=== PATIENT | female | born 1955 | race Asian ===

== ENCOUNTER 2017-02-18 06:24 | Emergency (ER) | payer MEDICAID ==
[~2017-02-18] VITALS: Ht 149.9 cm; Wt 61.4 kg
[~2017-02-18 06:24] MED LIST: CLON0.2T PO; HCTZ PO; LISI10TA7 PO; PARO20TA24
[2017-02-18] MEDS ORDERED: MELO-107 PO (06:39)
[2017-02-18] MEDS ORDERED: NITR.4 SL (06:39)
[2017-02-18] MEDS ORDERED: TRAZ-144 PO (06:39)
[2017-02-18] MEDS ORDERED: ATOR20TA86 PO (06:39)
[2017-02-18] MEDS ORDERED: BENZ-51 PO (06:39)
[2017-02-18] MEDS ORDERED: LOSA25TA21 PO (06:39)
[2017-02-18] MEDS ORDERED: MECL-111 PO (06:39)
[2017-02-18 09:48] LABS: BASOPHILS # (AUTO) 0.02 K/uL (0.00-0.20); BASOPHILS % (AUTO) 0.2 % (0.0-2.0); EOSINOPHILS % (AUTO) 0.01 % (1.0-6.0); HEMATOCRIT 45.6 % (36-46); HEMOGLOBIN 14.6 g/dL (12.0-16.0); LYMPHOCYTES # (AUTO) 1.3 K/uL (1.0-4.8); LYMPHOCYTES % (AUTO) 13.6 % (22.0-44.0); MEAN CORPUSCULAR HEMOGLOBIN 26.5 pg (26.0-34.0); MEAN CORPUSCULAR VOLUME 83 fL (80-100); MONOCYTES # (AUTO) 0.3 K/uL (0.1-1.0); MONOCYTES % (AUTO) 3.2 % (2.0-9.0); NEUTROPHILS # (AUTO) 8.2 K/uL (1.8-7.7); PLATELET COUNT (AUTO) 259 K/uL (150-450); RED BLOOD CELL COUNT(AUTO) 5.51 MIL/uL (4.00-5.20); WHITE BLOOD COUNT (AUTO) 9.8 K/uL (4.5-11.0)
[2017-02-18 09:58] LABS: APPEARANCE,URINE CLOUDY (CLEAR); GLUCOSE, URINE (UA) 100 mg/dL (NEGATIVE); KETONES,URINE TRACE mg/dL (NEGATIVE); LEUKOCYTE ESTERASE ,URINE NEGATIVE (NEGATIVE); OCCULT BLOOD,URINE NEGATIVE (NEGATIVE); PH,URINE 8.5 (5.0-8.0); PROTEIN,URINE SEE CONFIRM (NEGATIVE)
[2017-02-18 09:59] LABS: ADD UA MICROSCOPIC YES
[2017-02-18] MEDS ORDERED: ONDANSETRON HCL 4 MG/2 ML VIAL IVP ONE (10:00)
[2017-02-18] MEDS ORDERED: KETOROLAC TROMETHAMINE 30 MG/ML VIAL IVP ONE (10:00)
[2017-02-18] MEDS ORDERED: SODIUM CHLORIDE 0.9% 1,000 ML IV ONE (10:00)
[2017-02-18 10:03] LABS: ANION GAP 11 mmol/L (8-16); CALCIUM, TOTAL 9.6 mg/dL (8.8-10.5); CARBON DIOXIDE 26 mmol/L (22-29); CHLORIDE 103 mmol/L (98-107); CREATININE 0.74 mg/dL (0.60-1.30); GLOMERULAR FILTR. RATE CALC > 60 mL/min (>60); POTASSIUM 3.7 mmol/L (3.5-5.1); SODIUM SERUM 140 mmol/L (136-145); UREA NITROGEN, BLOOD 14 mg/dL (7-18)
[2017-02-18 10:09] LABS: SULFOSALICYLIC ACID,URINE Trace (Negative)
[2017-02-18 10:09] LABS: ALANINE AMINOTRANSFERASE 30 U/L (12-78); ALBUMIN 4.2 g/dL (3.4-5.0); ASPARTATE AMINOTRANSFERASE 26 U/L (15-37); BILIRUBIN,TOTAL 0.7 mg/dL (0.1-1.0); TOTAL PROTEIN, SERUM 8.3 g/dL (6.4-8.2)
[2017-02-18 10:11] LABS: RBC,URINE None Seen /HPF (0-2); SQUAMOUS EPITHELIAL CELL,UR Few /LPF (None Seen)
[2017-02-18] MEDS ORDERED: LOSARTAN POTASSIUM 25 MG TABLET PO ONE (11:15)
[2017-02-18 12:40] VITALS: BP 157/91
== END 2017-02-18 12:50 | disposition home or self-care (01) ==
LOC: EMS 06:25
DX: R11.2 Nausea with vomiting, unspecified (principal); R19.7 Diarrhea, unspecified; R51 Headache; I10 Essential (primary) hypertension
CPT/HCPCS: 36415; 80053; 81001; 83690; 84484; 85025; 87086; 96374; 96375; 99284; J1885; J2405; J7030

== ENCOUNTER 2017-03-04 13:38 | Emergency (ER) | payer MEDICAID ==
[~2017-03-04] VITALS: Ht 152.4 cm; Wt 61.4 kg
[~2017-03-04 13:38] MED LIST changes: +ATOR20TA86 PO; +BENZ-51 PO; -HCTZ PO; -LISI10TA7 PO; +LOSA25TA21 PO; +MECL-111 PO; +MELO-107 PO; +NITR.4 SL; -PARO20TA24; +TRAZ-144 PO
[2017-03-04] MEDS ORDERED: LOSA50TA37 PO (13:41)
[2017-03-04] MEDS ORDERED: IBUPROFEN 800 MG TABLET PO ONE (14:15)
[2017-03-04 14:47] LABS: INFLUENZA TYPE A NEGATIVE FOR TYPE A (NEGATIVE); INFLUENZA TYPE B NEGATIVE FOR TYPE B (NEGATIVE); RAPID GROUP A STREP NEGATIVE (NEGATIVE)
[2017-03-04] MEDS ORDERED: ALBUTEROL SULFATE 5 MG/ML 20 ML NEB SOLN [BULK] NEB ONE (16:15)
[2017-03-04 17:51] VITALS: BP 121/61
== END 2017-03-04 17:52 | disposition home or self-care (01) ==
LOC: EMS 13:40
DX: J06.9 Acute upper respiratory infection, unspecified (principal); J40 Bronchitis, not specified as acute or chronic; I10 Essential (primary) hypertension
CPT/HCPCS: 71020; 87430; 87804; 94640; 99285

== ENCOUNTER 2017-09-22 12:59 | Emergency (ER) | payer MEDICAID ==
[~2017-09-22] VITALS: Ht 152.4 cm; Wt 61.8 kg
[~2017-09-22 12:59] MED LIST changes: -LOSA25TA21 PO; +LOSA50TA37 PO; -TRAZ-144 PO; +TRAZ-219 PO
[2017-09-22 15:01] LABS: BASOPHILS % (AUTO) 0.6 % (0.0-2.0); EOSINOPHILS % (AUTO) 0.1 % (1.0-6.0); HEMATOCRIT 41.8 % (36-46); HEMOGLOBIN 14.1 g/dL (12.0-16.0); LYMPHOCYTES # (AUTO) 2.3 K/uL (1.0-4.8); LYMPHOCYTES % (AUTO) 30.6 % (22.0-44.0); MEAN CORPUSCULAR HEMOGLOBIN 26.9 pg (26.0-34.0); MEAN CORPUSCULAR HGB CONC 33.6 G/dL (31.0-37.0); MEAN CORPUSCULAR VOLUME 80 fL (80-100); MONOCYTES # (AUTO) 0.5 K/uL (0.1-1.0); MONOCYTES % (AUTO) 6.9 % (2.0-9.0); NEUTROPHILS # (AUTO) 4.7 K/uL (1.8-7.7); NEUTROPHILS % (AUTO) 61.8 % (40.0-70.0); PLATELET COUNT (AUTO) 246 K/uL (150-450); RED BLOOD CELL COUNT(AUTO) 5.23 MIL/uL (4.00-5.20); RED CELL DISTRIBUTION WIDTH 13.7 % (11.5-14.5)
[2017-09-22 15:06] LABS: APPEARANCE,URINE CLEAR (CLEAR); BILIRUBIN,URINE NEGATIVE (NEGATIVE); GLUCOSE, URINE (UA) NEGATIVE (NEGATIVE); KETONES,URINE 40 mg/dL (NEGATIVE); LEUKOCYTE ESTERASE ,URINE NEGATIVE (NEGATIVE); NITRATE,URINE NEGATIVE (NEGATIVE); OCCULT BLOOD,URINE NEGATIVE (NEGATIVE); PH,URINE 7.5 (5.0-8.0); PROTEIN,URINE TRACE (NEGATIVE)
[2017-09-22] MEDS ORDERED: SODIUM CHLORIDE 0.9% 1,000 ML IV ONE (15:15)
[2017-09-22] MEDS ORDERED: ONDANSETRON HCL 4 MG/2 ML VIAL IVP ONE (15:15)
[2017-09-22] MEDS ORDERED: KETOROLAC TROMETHAMINE 30 MG/ML VIAL IVP ONE (15:15)
[2017-09-22 15:19] LABS: CALCIUM, TOTAL 9.4 mg/dL (8.8-10.5); CREATININE 0.99 mg/dL (0.60-1.30); POTASSIUM 3.4 mmol/L (3.5-5.1)
[2017-09-22 15:24] LABS: ALBUMIN 4.2 g/dL (3.4-5.0); BILIRUBIN,TOTAL 1.2 mg/dL (0.1-1.0); TOTAL PROTEIN, SERUM 8.2 g/dL (6.4-8.2)
[2017-09-22 15:27] LABS: BACTERIA,URINE None Seen /HPF (None Seen); RBC,URINE None Seen /HPF (0-2); SQUAMOUS EPITHELIAL CELL,UR Rare /LPF (None Seen); WBC,URINE 0-2 /HPF (0-5)
[2017-09-22 17:02] VITALS: BP 139/71
== END 2017-09-22 17:22 | disposition home or self-care (01) ==
LOC: EMS 12:59
DX: R11.2 Nausea with vomiting, unspecified (principal); R10.10 Upper abdominal pain, unspecified; R30.9 Painful micturition, unspecified; I10 Essential (primary) hypertension
CPT/HCPCS: 36415; 80053; 81001; 83690; 85025; 96361; 96374; 96375; 99284; J1885; J2405; J7030

== ENCOUNTER 2023-08-05 18:03 | Emergency (ER) | payer MEDICARE, MEDICAID ==
[~2023-08-05] VITALS: Ht 149.9 cm; Wt 59.1 kg
[~2023-08-05 18:03] MED LIST changes: +ATOR20TA PO; -ATOR20TA86 PO; +BENZ-227 PO; -BENZ-51 PO; +LOSA-382 PO; -LOSA50TA37 PO; -MECL-111 PO; +MECL-302 PO; -NITR.4 SL; +NITR0.4T52 SL; -TRAZ-219 PO; +TRAZ-252 PO
[2023-08-05 18:18] VITALS: BP 191/77; PULSE 56; RESP 14; TEMP 97.8
[2023-08-05] MEDS ORDERED: TRAZ-257 PO (18:36)
[2023-08-05] MEDS ORDERED: CLON0.2T2 PO (18:36)
[2023-08-05] MEDS ORDERED: GABA-529 PO (18:36)
[2023-08-05] MEDS ORDERED: HYDR12.56 PO (18:36)
[2023-08-05] MEDS: SODIUM CHLORIDE 0.9% 1,000 ML IV ONE (18:50)
[2023-08-05] MEDS: DIPHENOXYLATE/ATROP 2.5-0.025 MG TABLET PO ONE (18:51)
[2023-08-05] MEDS: ACETAMINOPHEN 500 MG TABLET PO ONE (18:51)
[2023-08-05] MEDS: ONDANSETRON HCL 4 MG/2 ML VIAL IVP ONE (18:52)
[2023-08-05 19:24] LABS: BASOPHILS % (AUTO) 0.3 % (0.0-2.0); EOSINOPHILS % (AUTO) 0.1 % (1.0-6.0); HEMATOCRIT 37.1 % (36-46); HEMOGLOBIN 11.8 g/dL (12.0-16.0); LYMPHOCYTES # (AUTO) 0.7 K/uL (1.0-4.8); LYMPHOCYTES % (AUTO) 10.1 % (22.0-44.0); MEAN CORPUSCULAR HEMOGLOBIN 25.7 pg (26.0-34.0); MEAN CORPUSCULAR HGB CONC 31.7 G/dL (31.0-37.0); MEAN CORPUSCULAR VOLUME 81 fL (80-100); MONOCYTES # (AUTO) 0.2 K/uL (0.1-1.0); MONOCYTES % (AUTO) 2.6 % (2.0-9.0); NEUTROPHILS # (AUTO) 5.7 K/uL (1.8-7.7); NEUTROPHILS % (AUTO) 86.9 % (40.0-70.0); PLATELET COUNT (AUTO) 204 K/uL (150-450); RED BLOOD CELL COUNT(AUTO) 4.59 MIL/uL (4.00-5.20); RED CELL DISTRIBUTION WIDTH 13.7 % (11.5-14.5); WHITE BLOOD COUNT (AUTO) 6.5 K/uL (4.5-11.0)
[2023-08-05 19:35] LABS: ANION GAP 9 mmol/L (8-16); CALCIUM, TOTAL 8.3 mg/dL (8.8-10.5); CARBON DIOXIDE 26 mmol/L (22-29); CHLORIDE 107 mmol/L (98-107); CREATININE 0.86 mg/dL (0.60-1.30); GLOMERULAR FILTR. RATE CALC > 60 mL/min (>60); GLUCOSE,RANDOM 131 mg/dL (70-110); POTASSIUM 3.4 mmol/L (3.5-5.1); SODIUM SERUM 142 mmol/L (136-145); UREA NITROGEN, BLOOD 19 mg/dL (7-18)
[2023-08-05 19:40] LABS: RBC MORPHOLOGY COMMENT NORMAL RBC MORPH
[2023-08-05 19:41] LABS: ALANINE AMINOTRANSFERASE 14 U/L (12-78); ALBUMIN 3.1 g/dL (3.4-5.0); ALKALINE PHOSPHATASE 98 U/L (46-116); ASPARTATE AMINOTRANSFERASE 18 U/L (15-37); BILIRUBIN,TOTAL 0.4 mg/dL (0.1-1.0); LIPASE 29 U/L (16-77); TOTAL PROTEIN, SERUM 6.8 g/dL (6.4-8.2)
[2023-08-05 19:46] LABS: TROPONIN I-HIGH SENSITIVITY 9 ng/L (<51)
[2023-08-05] MEDS ORDERED: DIPH-1130 PO ×2 (20:25→22:44)
[2023-08-05] MEDS ORDERED: ACET-66 PO ×2 (20:25→22:44)
[2023-08-05] MEDS ORDERED: ONDA-104 PO ×2 (20:25→22:44)
== END 2023-08-05 20:54 | disposition home or self-care (01) ==
LOC: EMS 18:04
DX: K52.9 Noninfective gastroenteritis and colitis, unspecified (principal); F41.9 Anxiety disorder, unspecified; I10 Essential (primary) hypertension; F32.A Depression, unspecified
CPT/HCPCS: 99283; 96374; 96361; 80053; 83690; 84484; 85025; 36415; J2405; J7030

== ENCOUNTER 2023-11-16 08:24 | Emergency (ER) | payer OTHER ==
[~2023-11-16] VITALS: Ht 160 cm; Wt 59.1 kg
[~2023-11-16 08:24] MED LIST changes: +ACET-66 PO; -BENZ-227 PO; -CLON0.2T PO; +CLON0.2T2 PO; +DIPH-1130 PO; +GABA-529 PO; +HYDR12.56 PO; -MECL-302 PO; -MELO-107 PO; +ONDA-104 PO; -TRAZ-252 PO; +TRAZ-257 PO
[2023-11-16 08:32] VITALS: BP 127/46; PULSE 56; RESP 18; TEMP 98.7; O2SAT 100
[2023-11-16 09:17] LABS: BASOPHILS % (AUTO) 0.3 % (0.0-2.0); EOSINOPHILS % (AUTO) 0.3 % (1.0-6.0); HEMATOCRIT 37.2 % (36-46); HEMOGLOBIN 11.9 g/dL (12.0-16.0); LYMPHOCYTES # (AUTO) 1.4 K/uL (1.0-4.8); LYMPHOCYTES % (AUTO) 22.7 % (22.0-44.0); MEAN CORPUSCULAR HEMOGLOBIN 26.5 pg (26.0-34.0); MEAN CORPUSCULAR HGB CONC 32.1 G/dL (31.0-37.0); MEAN CORPUSCULAR VOLUME 83 fL (80-100); MONOCYTES # (AUTO) 0.4 K/uL (0.1-1.0); MONOCYTES % (AUTO) 5.8 % (2.0-9.0); NEUTROPHILS # (AUTO) 4.3 K/uL (1.8-7.7); NEUTROPHILS % (AUTO) 70.9 % (40.0-70.0); PLATELET COUNT (AUTO) 219 K/uL (150-450); RED BLOOD CELL COUNT(AUTO) 4.51 MIL/uL (4.00-5.20); RED CELL DISTRIBUTION WIDTH 15.9 % (11.5-14.5); WHITE BLOOD COUNT (AUTO) 6.1 K/uL (4.5-11.0)
[2023-11-16 09:30] LABS: CALCIUM, TOTAL 8.9 mg/dL (8.8-10.5); CREATININE 1.3 mg/dL (0.60-1.30); POTASSIUM 3.4 mmol/L (3.5-5.1)
[2023-11-16 09:37] LABS: TROPONIN I-HIGH SENSITIVITY 12 ng/L (<51)
[2023-11-16] MEDS: ONDANSETRON HCL 4 MG/2 ML VIAL IVP ONE (10:13)
[2023-11-16] MEDS: SODIUM CHLORIDE 0.9% 500 ML IV ONE (10:13)
[2023-11-16] MEDS ORDERED: ONDA-104 PO (13:03)
== END 2023-11-16 13:25 | disposition home or self-care (01) ==
LOC: EMS 08:24
DX: R11.2 Nausea with vomiting, unspecified (principal); F41.9 Anxiety disorder, unspecified; F32.A Depression, unspecified; I10 Essential (primary) hypertension
CPT/HCPCS: 99283; 96374; 80048; 83690; 84484; 85025; 36415; J2405; J7040

== ENCOUNTER 2024-01-04 23:00 | Inpatient (IN) | payer OTHER ==
[~2024-01-04] VITALS: Ht 149.9 cm; Wt 59.1 kg
[2024-01-04] MEDS: SODIUM CHLORIDE 0.9% 1,000 ML IV ONE (23:45)
[2024-01-04] MEDS: ONDANSETRON HCL 4 MG/2 ML VIAL IVP ONE (23:46)
[2024-01-04] MEDS: FAMOTIDINE 20 MG/2 ML VIAL IVP ONE (23:46)
[2024-01-04] MEDS: KETOROLAC TROMETHAMINE 30 MG/ML VIAL IVP ONE (23:46)
[2024-01-04 23:50] LABS: BASOPHILS % (AUTO) 0.5 % (0.0-2.0); EOSINOPHILS % (AUTO) 0.8 % (1.0-6.0); HEMATOCRIT 41.5 % (36-46); HEMOGLOBIN 13.4 g/dL (12.0-16.0); LYMPHOCYTES # (AUTO) 1.9 K/uL (1.0-4.8); LYMPHOCYTES % (AUTO) 18.7 % (22.0-44.0); MEAN CORPUSCULAR HEMOGLOBIN 26.2 pg (26.0-34.0); MEAN CORPUSCULAR HGB CONC 32.2 G/dL (31.0-37.0); MEAN CORPUSCULAR VOLUME 82 fL (80-100); MONOCYTES # (AUTO) 0.7 K/uL (0.1-1.0); MONOCYTES % (AUTO) 6.5 % (2.0-9.0); NEUTROPHILS # (AUTO) 7.5 K/uL (1.8-7.7); NEUTROPHILS % (AUTO) 73.5 % (40.0-70.0); PLATELET COUNT (AUTO) 209 K/uL (150-450); RED BLOOD CELL COUNT(AUTO) 5.09 MIL/uL (4.00-5.20); WHITE BLOOD COUNT (AUTO) 10.2 K/uL (4.5-11.0)
[2024-01-04 23:59] LABS: ANION GAP 5 mmol/L (8-16); CALCIUM, TOTAL 9.1 mg/dL (8.8-10.5); CARBON DIOXIDE 29 mmol/L (22-29); CHLORIDE 104 mmol/L (98-107); GLOMERULAR FILTR. RATE CALC > 60 mL/min (>60); GLUCOSE,RANDOM 117 mg/dL (70-110); POTASSIUM 3.7 mmol/L (3.5-5.1); SODIUM SERUM 138 mmol/L (136-145); UREA NITROGEN, BLOOD 18 mg/dL (7-18)
[2024-01-05 00:05] LABS: ALANINE AMINOTRANSFERASE 21 U/L (12-78); ALBUMIN 3.5 g/dL (3.4-5.0); ALKALINE PHOSPHATASE 85 U/L (46-116); ASPARTATE AMINOTRANSFERASE 34 U/L (15-37); BILIRUBIN,TOTAL 0.6 mg/dL (0.1-1.0); LIPASE 54 U/L (16-77); TOTAL PROTEIN, SERUM 7.5 g/dL (6.4-8.2)
[2024-01-05] MEDS ORDERED: SODIUM CHLORIDE 0.9% 100 ML ONE (00:17)
[2024-01-05] MEDS ORDERED: IOHEXOL 350 MG/ML 100 ML VIAL ONE (00:18)
[2024-01-05 00:26] LABS: TROPONIN I-HIGH SENSITIVITY 13 ng/L (<51)
[2024-01-05] MEDS: PIPERACILLIN/TAZO 3.375 GM/D5W 50 ML IV ONE (02:32)
[2024-01-05] MEDS: HydrALAZINE HCL 20 MG/ML VIAL IVP PRN (02:59)
[2024-01-05] MEDS: SODIUM CHLORIDE 0.9% 1,000 ML IV ONE (02:59)
[2024-01-05] MEDS ORDERED: ONDANSETRON HCL 4 MG/2 ML VIAL IVP PRN (03:00)
[2024-01-05] MEDS: MORPHINE SULFATE 4 MG/ML SYRINGE IVP PRN ×2 (03:37→19:46)
[2024-01-05 03:58] LABS: APPEARANCE,URINE CLEAR (CLEAR); BILIRUBIN,URINE NEGATIVE (NEGATIVE); COLOR,URINE LIGHT YELLOW (YELLOW); GLUCOSE, URINE (UA) 150-200 mg/dL (NEGATIVE); KETONES,URINE NEGATIVE (NEGATIVE); LEUKOCYTE ESTERASE ,URINE NEGATIVE (NEGATIVE); NITRATE,URINE NEGATIVE (NEGATIVE); OCCULT BLOOD,URINE NEGATIVE (NEGATIVE); PH,URINE 5.5 (5.0-8.0); PROTEIN,URINE NEGATIVE (NEGATIVE); SPECIFIC GRAVITIY, URINE 1.013 (1.003-1.030); UROBILINOGEN,URINE <=1.0 mg/dL (<=1.0)
[2024-01-05 04:18] LABS: BACTERIA,URINE None Seen /HPF (None Seen); RBC,URINE None Seen /HPF (0-2); SQUAMOUS EPITHELIAL CELL,UR Few /LPF (None Seen); WBC,URINE None Seen /HPF (0-5)
[2024-01-05] MEDS: PANTOPRAZOLE SODIUM 40 MG/VIAL IVP SCH (08:22)
[2024-01-05] MEDS: DOCUSATE SODIUM 100 MG CAPSULE PO SCH (08:22)
[2024-01-05] MEDS: LOSARTAN POTASSIUM 50 MG TABLET PO SCH (09:35)
[2024-01-05] MEDS: PIPERACILLIN/TAZO 3.375 GM/D5W 50 ML IV SCH (09:35)
[2024-01-05] MEDS: CloNIDine HCL 0.1 MG TABLET PO PRN (11:23)
[2024-01-05 11:59] VITALS: BP 180/97; PULSE 79; RESP 19; TEMP 99.3; O2SAT 99
[2024-01-05 12:00] VITALS: BP 186/91; PULSE 77; RESP 20; O2SAT 99
[2024-01-05] MEDS ORDERED: DiphenhydrAMINE HCL 50 MG/ML VIAL IVP ONE (12:00)
[2024-01-05] MEDS ORDERED: SUGAMMADEX SODIUM 200 MG/2 ML VIAL IVP ONE (12:00)
[2024-01-05] MEDS ORDERED: KETOROLAC TROMETHAMINE 60 MG/2 ML VIAL IM ONE (12:00)
[2024-01-05] MEDS ORDERED: PROPOFOL 1% ISO-OSM 1000 MG/100 ML BOTTLE IV ONE (12:00)
[2024-01-05] MEDS ORDERED: ONDANSETRON HCL 4 MG/2 ML VIAL IVP ONE (12:00)
[2024-01-05] MEDS ORDERED: PROPOFOL 1% 20 ML VIAL IVP ONE (12:00)
[2024-01-05] MEDS ORDERED: LIDOCAINE/PF 2% 5 ML SYRINGE IVP ONE (12:00)
[2024-01-05] MEDS ORDERED: ROCURONIUM BROMIDE 10 MG/ML 5 ML VIAL IVP ONE (12:00)
[2024-01-05] MEDS ORDERED: HydrALAZINE HCL 20 MG/ML VIAL IVP ONE (12:00)
[2024-01-05 12:03] VITALS: BP_SYST 179; BP_SYST 182; BP_DIAS 72; BP_DIAS 76; PULSE 69; PULSE 72; RESP 19; TEMP 99.1; O2SAT 99
[2024-01-05 12:24] VITALS: BP 139/71; O2SAT 99
[2024-01-05] MEDS ORDERED: SODIUM CL IRRIG SOLN BAG 3,000 ML IRRIG ONE (13:08)
[2024-01-05] MEDS ORDERED: RINGERS SOLUTION,LACTATED 1,000 ML IV ONE (13:35)
[2024-01-05] MEDS ORDERED: NOREPINEPHRINE 8 MG/0.9 % NACL 250 ML IV PRN (14:15)
[2024-01-05] MEDS ORDERED: HYDROmorphone HCL 2 MG/ML SYRINGE IVP PRN (16:45)
[2024-01-05] MEDS ORDERED: FentaNYL CITRATE PF 100 MCG/2 ML VIAL IVP PRN (16:45)
[2024-01-05] MEDS ORDERED: ACETAMINOPHEN 1000 MG/ISO-OSM 100 ML IV ONE (17:08)
[2024-01-05] MEDS: ACETAMINOPHEN 1000 MG/ISO-OSM 100 ML IV ONE (17:08)
[2024-01-05] MEDS: BUPIVACAINE 0.25%/EPI 1:200,000/PF 30 ML VIAL ONE (18:00)
[2024-01-05 18:41] VITALS: BP 118/57; PULSE 90; RESP 17; TEMP 98.6; O2SAT 98
[2024-01-05 19:22] VITALS: BP 124/61; PULSE 80; TEMP 100; O2SAT 98
[2024-01-05] MEDS: OXYGEN THERAPY IH SCH (20:00)
[2024-01-06 02:55] VITALS: BP 127/60; PULSE 55; RESP 16; TEMP 98.6; O2SAT 98
[2024-01-06 08:13] LABS: BASOPHILS % (AUTO) 0.1 % (0.0-2.0); EOSINOPHILS % (AUTO) 0 % (1.0-6.0); HEMATOCRIT 35.7 % (36-46); HEMOGLOBIN 11.6 g/dL (12.0-16.0); LYMPHOCYTES # (AUTO) 0.9 K/uL (1.0-4.8); LYMPHOCYTES % (AUTO) 6.5 % (22.0-44.0); MEAN CORPUSCULAR HEMOGLOBIN 26.8 pg (26.0-34.0); MEAN CORPUSCULAR HGB CONC 32.4 G/dL (31.0-37.0); MEAN CORPUSCULAR VOLUME 83 fL (80-100); MONOCYTES # (AUTO) 0.5 K/uL (0.1-1.0); MONOCYTES % (AUTO) 3.6 % (2.0-9.0); PLATELET COUNT (AUTO) 176 K/uL (150-450); RED BLOOD CELL COUNT(AUTO) 4.32 MIL/uL (4.00-5.20); RED CELL DISTRIBUTION WIDTH 13.8 % (11.5-14.5); WHITE BLOOD COUNT (AUTO) 13.3 K/uL (4.5-11.0)
[2024-01-06 08:23] VITALS: BP 142/71; PULSE 60; RESP 19; TEMP 98.8; O2SAT 100
[2024-01-06 08:35] LABS: NEUTROPHILS % (AUTO) 89.8 % (40.0-70.0)
[2024-01-06 08:44] LABS: ALBUMIN 2.6 g/dL (3.4-5.0); BILIRUBIN,TOTAL 0.8 mg/dL (0.1-1.0); CALCIUM, TOTAL 8.1 mg/dL (8.8-10.5); CREATININE 0.99 mg/dL (0.60-1.30); POTASSIUM 3.9 mmol/L (3.5-5.1); TOTAL PROTEIN, SERUM 6.6 g/dL (6.4-8.2)
[2024-01-06] MEDS ORDERED: FentaNYL CITRATE PF 100 MCG/2 ML VIAL IVP ONE (12:00)
[2024-01-06] MEDS ORDERED: MIDAZOLAM HCL 2 MG/2 ML VIAL IVP ONE (12:00)
[2024-01-06] MEDS: HYDROCODONE/ACETAMINOPHEN 5-325 MG TABLET PO PRN (13:15)
[2024-01-06 16:05] VITALS: BP 155/65; PULSE 66; RESP 19; TEMP 98.9; O2SAT 100
[2024-01-06 19:48] VITALS: BP 172/69; PULSE 67; RESP 20; TEMP 98.9; O2SAT 97
[2024-01-06] MEDS: ZOLPIDEM TARTRATE 5 MG TABLET PO ONE (20:32)
[2024-01-07 00:24] VITALS: BP 149/76; PULSE 76; RESP 18; O2SAT 98
[2024-01-07 06:34] VITALS: BP 142/78; PULSE 66; RESP 18; TEMP 98.5; O2SAT 99
[2024-01-07 07:45] LABS: BASOPHILS % (AUTO) 0.3 % (0.0-2.0); EOSINOPHILS % (AUTO) 0.4 % (1.0-6.0); HEMATOCRIT 33.9 % (36-46); LYMPHOCYTES # (AUTO) 1.7 K/uL (1.0-4.8); LYMPHOCYTES % (AUTO) 17.7 % (22.0-44.0); MEAN CORPUSCULAR HEMOGLOBIN 26.8 pg (26.0-34.0); MEAN CORPUSCULAR HGB CONC 32.6 G/dL (31.0-37.0); MEAN CORPUSCULAR VOLUME 82 fL (80-100); MONOCYTES # (AUTO) 0.6 K/uL (0.1-1.0); MONOCYTES % (AUTO) 6.4 % (2.0-9.0); NEUTROPHILS # (AUTO) 7.3 K/uL (1.8-7.7); NEUTROPHILS % (AUTO) 75.2 % (40.0-70.0); PLATELET COUNT (AUTO) 174 K/uL (150-450); RED BLOOD CELL COUNT(AUTO) 4.11 MIL/uL (4.00-5.20); RED CELL DISTRIBUTION WIDTH 14.1 % (11.5-14.5); WHITE BLOOD COUNT (AUTO) 9.7 K/uL (4.5-11.0)
[2024-01-07 08:00] LABS: ALANINE AMINOTRANSFERASE 19 U/L (12-78); ALBUMIN 2.6 g/dL (3.4-5.0); ALKALINE PHOSPHATASE 73 U/L (46-116); ASPARTATE AMINOTRANSFERASE 23 U/L (15-37); BILIRUBIN,TOTAL 0.5 mg/dL (0.1-1.0); CALCIUM, TOTAL 8.3 mg/dL (8.8-10.5); CARBON DIOXIDE 24 mmol/L (22-29); CREATININE 0.92 mg/dL (0.60-1.30); GLOMERULAR FILTR. RATE CALC > 60 mL/min (>60); TOTAL PROTEIN, SERUM 6.4 g/dL (6.4-8.2); UREA NITROGEN, BLOOD 20 mg/dL (7-18)
[2024-01-07 08:08] LABS: ANION GAP 10 mmol/L (8-16); CHLORIDE 106 mmol/L (98-107); GLUCOSE,RANDOM 104 mg/dL (70-110); POTASSIUM 3.4 mmol/L (3.5-5.1); SODIUM SERUM 140 mmol/L (136-145)
[2024-01-07 08:24] VITALS: BP 137/100; PULSE 70; RESP 20; TEMP 99.1; O2SAT 95
[2024-01-07] MEDS: ACETAMINOPHEN 325 MG TABLET PO PRN (08:26)
[2024-01-07] MEDS: HYDROmorphone HCL 2 MG/ML SYRINGE IVP PRN (15:26)
[2024-01-07 16:47] VITALS: BP 177/75; PULSE 62; RESP 18; TEMP 98.4; O2SAT 97
[2024-01-07] MEDS ORDERED: AMOX-457 PO (16:54)
[2024-01-07] MEDS ORDERED: DOCU-119 PO (16:57)
[2024-01-07] MEDS ORDERED: HYDR-4062 PO (16:57)
== END 2024-01-07 18:50 | disposition home or self-care (01) | DRG 419 ==
LOC: EMS 23:00 → EDH 01-05 07:35 → 6S 01-05 08:00 → 4E 01-06 23:05
PROVIDERS: ADMIT Internal Medicine; ATTEND Internal Medicine
PROC: 0FT44ZZ Resection of Gallbladder, Percutaneous Endoscopic Approach (ICD-10-PCS; principal; 2024-01-05 14:30)
DX: K80.13 Calculus of gallbladder with acute and chronic cholecystitis with obstruction (principal); F32.A Depression, unspecified; I10 Essential (primary) hypertension; J45.909 Unspecified asthma, uncomplicated; F41.9 Anxiety disorder, unspecified
CPT/HCPCS: 74177; 76705; 80048; 80053; 80076; 81001; 81003; 83690; 84484; 85025; 87081; 99285; C9113; G0238; G0378; J0131; J0360; J1171; J1200; J1885; J2250; J2270; J2405; J2543; J2704; J3010; J3490; J7030; J7050; J7120

== ENCOUNTER 2024-08-31 20:09 | Emergency (ER) | payer OTHER ==
[~2024-08-31] VITALS: Ht 152.4 cm; Wt 59.1 kg
[~2024-08-31 20:09] MED LIST changes: +AMOX-457 PO; +DOCU-119 PO; +HYDR-4062 PO
[2024-08-31 20:19] VITALS: TEMP 98.2
[2024-08-31 20:57] LABS: BASOPHILS % (AUTO) 0.7 % (0.0-2.0); EOSINOPHILS % (AUTO) 0.1 % (1.0-6.0); HEMATOCRIT 43.3 % (36-46); HEMOGLOBIN 14.3 g/dL (12.0-16.0); LYMPHOCYTES # (AUTO) 1.3 K/uL (1.0-4.8); LYMPHOCYTES % (AUTO) 21.2 % (22.0-44.0); MEAN CORPUSCULAR HEMOGLOBIN 26.2 pg (26.0-34.0); MEAN CORPUSCULAR HGB CONC 33.1 G/dL (31.0-37.0); MEAN CORPUSCULAR VOLUME 79 fL (80-100); MONOCYTES # (AUTO) 0.3 K/uL (0.1-1.0); MONOCYTES % (AUTO) 5.3 % (2.0-9.0); NEUTROPHILS # (AUTO) 4.6 K/uL (1.8-7.7); NEUTROPHILS % (AUTO) 72.7 % (40.0-70.0); PLATELET COUNT (AUTO) 225 K/uL (150-450); RED BLOOD CELL COUNT(AUTO) 5.46 MIL/uL (4.00-5.20); WHITE BLOOD COUNT (AUTO) 6.3 K/uL (4.5-11.0)
[2024-08-31 21:05] LABS: ANION GAP 10 mmol/L (8-16); CALCIUM, TOTAL 9.6 mg/dL (8.8-10.5); CARBON DIOXIDE 26 mmol/L (22-29); CHLORIDE 102 mmol/L (98-107); CREATININE 0.89 mg/dL (0.60-1.30); GLOMERULAR FILTR. RATE CALC > 60 mL/min (>60); GLUCOSE,RANDOM 121 mg/dL (70-110); POTASSIUM 3.8 mmol/L (3.5-5.1); SODIUM SERUM 138 mmol/L (136-145); UREA NITROGEN, BLOOD 17 mg/dL (7-18)
[2024-08-31 21:13] LABS: TROPONIN I-HIGH SENSITIVITY 25 ng/L (<51)
[2024-08-31 21:27] LABS: ALBUMIN 4.1 g/dL (3.4-5.0); BILIRUBIN,DIRECT 0.3 mg/dL (0.00-0.20); BILIRUBIN,TOTAL 0.9 mg/dL (0.1-1.0); TOTAL PROTEIN, SERUM 8.3 g/dL (6.4-8.2)
[2024-08-31] MEDS: DiphenhydrAMINE HCL 50 MG/ML VIAL IVP ONE (23:13)
[2024-08-31] MEDS: METOCLOPRAMIDE HCL 5 MG/ML 2 ML VIAL IVP ONE (23:13)
[2024-08-31] MEDS: KETOROLAC TROMETHAMINE 15 MG/ML VIAL IVP ONE (23:14)
[2024-08-31] MEDS ORDERED: KETOROLAC TROMETHAMINE 30 MG/ML VIAL IVP ONE (23:15)
[2024-08-31 23:27] LABS: COVID AG,FIA SOURCE NASAL SWAB
[2024-08-31 23:46] LABS: INFLUENZA TYPE A NEGATIVE FOR TYPE A (NEGATIVE); INFLUENZA TYPE B NEGATIVE FOR TYPE B (NEGATIVE); SARS-COV2 (COVID) ANTIGEN,FIA Negative (Negative)
[2024-09-01 00:03] VITALS: BP 177/70; PULSE 78; RESP 18; O2SAT 99
[2024-09-01] MEDS: CloNIDine HCL 0.2 MG TABLET PO ONE (00:10)
[2024-09-01] MEDS ORDERED: METO5TAB95 PO (00:33)
[2024-09-01] MEDS ORDERED: ONDA-104 PO (00:33)
[2024-09-01] MEDS ORDERED: ZOLP-280 PO (00:33)
== END 2024-09-01 00:43 | disposition home or self-care (01) ==
LOC: EMS 20:11
DX: R42 Dizziness and giddiness (principal); R11.2 Nausea with vomiting, unspecified; F32.A Depression, unspecified; F41.9 Anxiety disorder, unspecified; I10 Essential (primary) hypertension; Z98.890 Other specified postprocedural states; Z79.899 Other long term (current) drug therapy; Z20.822 Contact with and (suspected) exposure to COVID-19
CPT/HCPCS: 80048; 80076; 83880; 84484; 85025; 87804; 36415; 71045; 99285; 93005; 96374; 96375; 87426; J1200; J1885; J2765